=== PATIENT | female | born 1985 | race Two or more races ===

== ENCOUNTER 2017-04-04 07:48 | Inpatient (IN) | payer MEDICAID ==
[~2017-04-04] VITALS: Ht 162.6 cm; Wt 85.0 kg
[~2017-04-04 07:48] MED LIST: DESO1TAB14 PO; FLUO40CA9 PO
[2017-04-04 08:12] VITALS: BP 117/74
[2017-04-04] MEDS ORDERED: OXYTOCIN 30U/ 0.9% NaCL 500ML 500 ML IV ONE (08:39)
[2017-04-04] MEDS ORDERED: D5%-LACTATED RINGERS 1,000 ML IV SCH (08:39)
[2017-04-04] MEDS ORDERED: FENTANYL PF 100 MCG/2ML IVPush PRN (09:00)
[2017-04-04] MEDS ORDERED: METOCLOPRAMIDE 5 MG/ML, 2ML IVPush PRN (09:00)
[2017-04-04] MEDS ORDERED: ONDANSETRON 2MG/ML, 2ML IVPush PRN ×2 (09:00→14:30)
[2017-04-04] MEDS: LACTATED RINGERS 1,000 ML IV SCH ×3 (09:00→13:52)
[2017-04-04] MEDS ORDERED: FENTANYL PF 100 MCG/2ML IV PRN (09:00)
[2017-04-04] MEDS ORDERED: SODIUM CITRATE/CITRIC ACID 30 ML UDC PO PRN (09:00)
[2017-04-04] MEDS ORDERED: OXYTOCIN 30U/ 0.9% NaCL 500ML 500 ML ONE (09:15)
[2017-04-04] MEDS ORDERED: LIDOCAINE 1%, 20ML ONE (09:15)
[2017-04-04] MEDS ORDERED: NEWBORN KIT ONE (09:15)
[2017-04-04] MEDS ORDERED: MISOPROSTOL 200 MCG TABLET ONE (09:15)
[2017-04-04 10:11] LABS: HEMATOCRIT 36.8 % (34.6-47.8); HEMOGLOBIN 12.1 g/dL (11.7-16.4); WHITE BLOOD COUNT 8.7 x10^3/uL (3.4-10)
[2017-04-04] MEDS ORDERED: FENTANYL PF 100 MCG/2ML ONE ×4 (10:20→13:17)
[2017-04-04 10:28] LABS: DAU SCREEN DISCLAIMER
[2017-04-04] MEDS ORDERED: LIDOCAINE/PF 1.5%-EPI 1:200K, 30ML ONE (12:56)
[2017-04-04] MEDS ORDERED: BUPIVACAINE 0.25% ONE ×2 (12:56→13:17)
[2017-04-04] MEDS ORDERED: FENTANYL/BUPIV./NS/PF 250 ML EPIDCONT ONE ×2 (12:56→13:17)
[2017-04-04] MEDS ORDERED: DIPH,PERTUSS(ACELL),TET VAC/PF NC IM-VACC ONE ×2 (13:30→13:31)
[2017-04-04] MEDS ORDERED: FENTANYL/BUPIV./NS/PF 250 ML EPIDCONT SCH (14:02)
[2017-04-04] MEDS ORDERED: LACTATED RINGERS 1,000 ML IV SCH (14:02)
[2017-04-04] MEDS ORDERED: LACTATED RINGERS 1,000 ML IVBOLUS PRN (14:30)
[2017-04-04] MEDS ORDERED: EPHEDRINE 50 MG/ML, 1ML IVPush PRN (14:30)
[2017-04-04] MEDS ORDERED: DIPH,PERTUSS(ACELL),TET VAC/PF NC IM-VACC PRN (17:00)
[2017-04-04] MEDS ORDERED: MISOPROSTOL 200 MCG TABLET PR PRN (17:00)
[2017-04-04] MEDS ORDERED: DOCUSATE 100 MG CAPSULE PO PRN (17:00)
[2017-04-04] MEDS ORDERED: CALCIUM CARBONATE 500 MG TAB.CHEW PO PRN (17:00)
[2017-04-04] MEDS ORDERED: HYDROcodone/APAP 5/325 TABLET PO PRN (17:00)
[2017-04-04] MEDS ORDERED: ONDANSETRON 2MG/ML, 2ML IV PRN (17:00)
[2017-04-04 21:25] VITALS: BP 117/70
[2017-04-04] MEDS: OXYTOCIN 30U/ 0.9% NaCL 500ML 500 ML IV SCH (21:25)
[2017-04-05] MEDS: NITROFURANTOIN (MACROBID) 100 MG CAPSULE PO SCH ×2 (00:11→07:50)
[2017-04-05 00:25] VITALS: BP 115/75
[2017-04-05] MEDS: IBUPROFEN 600 MG TABLET PO PRN ×2 (00:31→06:57)
[2017-04-05] MEDS: OXYTOCIN 30U/ 0.9% NaCL 500ML 500 ML IV SCH (03:00)
[2017-04-05 05:25] VITALS: BP 117/79
[2017-04-05 05:49] LABS: HEMATOCRIT 28.3 % (34.6-47.8); HEMOGLOBIN 9.6 g/dL (11.7-16.4); WHITE BLOOD COUNT 9.5 x10^3/uL (3.4-10)
[2017-04-05 07:45] VITALS: BP 111/77
[2017-04-05] MEDS ORDERED: PRENATAL VIT/IRON/FA 1 EACH TABLET ONE (07:48)
[2017-04-05] MEDS: HYDROcodone/APAP 5/325 TABLET PO PRN ×2 (07:50→11:35)
[2017-04-05] MEDS ORDERED: PRENATAL VIT/IRON/FA 1 EACH TABLET PO SCH (09:00)
[2017-04-05] MEDS ORDERED: IBUP800T PO (11:44)
[2017-04-05] MEDS ORDERED: HYDR-3240 PO (11:45)
[2017-04-05] MEDS ORDERED: NITR100C56 PO (11:45)
[2017-04-05 12:20] VITALS: BP 126/84
[2017-04-05 16:30] VITALS: BP 124/81
== END 2017-04-05 18:21 | disposition home or self-care (01) | DRG 774 ==
LOC: LDOP 07:48 → LDIP 08:48 → 2NW 21:00
PROVIDERS: ADMIT Obstetrics & Gynecology; ATTEND Obstetrics & Gynecology
PROC: 10E0XZZ Delivery of Products of Conception, External Approach (ICD-10-PCS; principal; 2017-04-04)
PROC: 10907ZC Drainage of Amniotic Fluid, Therapeutic from Products of Conception, Via Natural or Artificial Opening (ICD-10-PCS; 2017-04-04)
DX: O69.81X0 Labor and delivery complicated by cord around neck, without compression, not applicable or unspecified (principal); O75.3 Other infection during labor; Z37.0 Single live birth; Z3A.37 37 weeks gestation of pregnancy; O70.9 Perineal laceration during delivery, unspecified
CPT/HCPCS: 36415; 80307; 81001; 85025; 86850; 86900; 87077; 87086; 87186; 90715; J3010; J3490; J2590; J7120

== ENCOUNTER 2017-10-24 18:53 | Emergency (ER) | payer MEDICAID ==
[~2017-10-24] VITALS: Ht 162.6 cm; Wt 60.0 kg
[~2017-10-24 18:53] MED LIST changes: +HYDR-3240 PO; +IBUP-1223 PO; +NITR100C56 PO
[2017-10-24] MEDS ORDERED: SUMATRIPTAN 6MG/0.5ML SQ ONE (19:30)
[2017-10-24] MEDS ORDERED: METOCLOPRAMIDE 5 MG/ML, 2ML IVPush ONE (19:30)
[2017-10-24] MEDS ORDERED: DIPHENHYDRAMINE 50 MG/ML, 1ML IVPush ONE (19:30)
[2017-10-24] MEDS ORDERED: KETOROLAC 30 MG/1 ML IVPush ONE ×2 (19:30→23:00)
[2017-10-24] MEDS ORDERED: SODIUM CHLORIDE 0.9% 1,000ML IVBOLUS ONE (19:30)
[2017-10-24] MEDS ORDERED: SODIUM CHLORIDE FLUSH 10ML SYR IVF ONE (19:30)
[2017-10-24 19:40] LABS: BASOPHILS # (AUTO) 0.04 x10^3/uL (0-0.1); BASOPHILS % (AUTO) 1 % (0-1); EOSINOPHILS # (AUTO) 0.06 x10^3/uL (0-0.4); EOSINOPHILS % (AUTO) 1 % (1-7); LYMPHOCYTES # (AUTO) 1.59 x10^3/uL (1-3.4); LYMPHOCYTES % (AUTO) 31 % (22-44); MD NO; MEAN CORPUSCULAR HEMOGLOBIN 27.2 pg (27.0-34.8); MEAN CORPUSCULAR HGB CONC 32.9 g/dL (32.4-35.8); MEAN CORPUSCULAR VOLUME 82.6 fL (80-100); MEAN PLATELET VOLUME 10.5 fL (7.4-10.4); MONOCYTES # (AUTO) 0.31 x10^3/uL (0.2-0.8); MONOCYTES % (AUTO) 6 % (2-9); NEUTROPHILS # (AUTO) 3.13 x10^3/uL (1.8-6.8); NEUTROPHILS % (AUTO) 61 % (42-75); PLATELET COUNT 299 x10^3/uL (130-400); RED BLOOD COUNT 4.43 x10^6/uL (3.82-5.3); RED CELL DISTRIBUTION WIDTH 13.1 % (9.6-15.2)
[2017-10-24 19:53] LABS: ANION GAP 7 mmol/L (5-15); CALCIUM 9.1 mg/dL (8.5-10.1); CHLORIDE 107 mmol/L (98-107); CREATININE 0.79 mg/dL (0.55-1.02)
[2017-10-24] MEDS ORDERED: METOCLOPRAMIDE 5 MG/ML, 2ML ONE (23:04)
[2017-10-24] MEDS ORDERED: KETOROLAC 30 MG/1 ML ONE (23:04)
[2017-10-25 00:47] LABS: CULTURE INDICATED? YES; MICROSCOPIC INDICATED
[2017-10-25] MEDS ORDERED: NITROFURANTOIN (MACROBID) 100 MG CAPSULE ONE (01:27)
[2017-10-25] MEDS ORDERED: NITROFURANTOIN (MACROBID) 100 MG CAPSULE PO ONE (01:30)
[2017-10-25 01:35] VITALS: BP 100/47
== END 2017-10-25 01:39 | disposition home or self-care (01) ==
LOC: ED 23:51
DX: R51 Headache (principal); N30.00 Acute cystitis without hematuria
CPT/HCPCS: 36415; 70450; 76801; 80048; 81001; 82040; 84702; 85025; 87077; 87086; 87186; 96361; 96374; 96375; 99285; J1885; J2765; J7030

== ENCOUNTER 2018-05-05 14:25 | Inpatient (IN) | payer MEDICAID ==
[~2018-05-05] VITALS: Ht 162.6 cm; Wt 65.9 kg
[2018-05-05] MEDS ORDERED: morphine SULFATE/PF 0.5 MG/ML, 10ML ONE (14:44)
[2018-05-05] MEDS ORDERED: METOCLOPRAMIDE 5 MG/ML, 2ML ONE (14:52)
[2018-05-05] MEDS ORDERED: METOCLOPRAMIDE 10MG TABLET ONE (14:52)
[2018-05-05] MEDS ORDERED: SODIUM CITRATE/CITRIC ACID 30 ML UDC ONE (14:52)
[2018-05-05] MEDS ORDERED: OXYTOCIN 30U/ 0.9% NaCL 500ML 500 ML IV SCH (14:59)
[2018-05-05] MEDS ORDERED: LACTATED RINGERS 1,000 ML IV SCH ×2 (14:59→15:00)
[2018-05-05] MEDS ORDERED: METOCLOPRAMIDE 5 MG/ML, 2ML IV ONE (15:00)
[2018-05-05] MEDS ORDERED: SODIUM CITRATE/CITRIC ACID 30 ML UDC PO ONE (15:00)
[2018-05-05] MEDS ORDERED: LACTATED RINGERS 1,000 ML IVBOLUS ONE (15:00)
[2018-05-05] MEDS ORDERED: CEFAZOLIN 1,000 MG ONE (15:21)
[2018-05-05] MEDS ORDERED: WATER-INJECTION,STERILE 10 ML IV ONE (15:21)
[2018-05-05] MEDS ORDERED: PHENYLEPHRINE 10 MG/ML ONE (15:21)
[2018-05-05] MEDS ORDERED: EPHEDRINE 50 MG/ML, 1ML ONE (15:21)
[2018-05-05] MEDS ORDERED: ONDANSETRON 2MG/ML, 2ML ONE (15:21)
[2018-05-05] MEDS ORDERED: OXYTOCIN 10 UNITS/ML, 1ML ONE (15:21)
[2018-05-05 15:32] LABS: AMPHETAMINE SCREEN, URINE Positive (Negative); BARBITURATE SCREEN, URINE Negative (Negative); BENZODIAZEPINE SCREEN, URINE Negative (Negative); CANNABINOID SCREEN, URINE Negative (Negative); COCAINE SCREEN, URINE Negative (Negative); METHADONE SCREEN, URINE Negative (Negative); OPIATE SCREEN, URINE Negative (Negative)
[2018-05-05 15:35] LABS: MICROSCOPIC INDICATED
[2018-05-05 15:44] LABS: MEAN CORPUSCULAR HEMOGLOBIN 23.5 pg (27.0-34.8); MEAN CORPUSCULAR VOLUME 73.3 fL (80-100); RED BLOOD COUNT 4.06 x10^6/uL (3.82-5.3); RED CELL DISTRIBUTION WIDTH 16.1 % (9.6-15.2)
[2018-05-05 15:46] LABS: MEAN PLATELET VOLUME 13.5 fL (7.4-10.4); PLATELET COUNT 233 x10^3/uL (130-400)
[2018-05-05 15:47] LABS: MD YES
[2018-05-05] MEDS: OXYTOCIN 30U/ 0.9% NaCL 500ML 500 ML IV SCH (15:53)
[2018-05-05] MEDS: LACTATED RINGERS 1,000 ML IV SCH ×2 (15:53→16:56)
[2018-05-05 15:55] LABS: ANISOCYTOSIS 1+; BAND#(MANUAL) 0.08 x10^3/uL; BANDS%(MANUAL) 1 % (0-7); BASOS#(MANUAL) 0.08 x10^3/uL (0-0.1); BASOS% (MANUAL) 1 % (0-1); LYMPH#(MANUAL) 1.56 x10^3/uL (1-3.4); LYMPHS% (MANUAL) 19 % (22-44); MICROCYTOSIS 1+; MONOS#(MANUAL) 0.49 x10^3/uL (0.3-2.7); MONOS% (MANUAL) 6 % (2-9); SEG#(MANUAL) 5.99 x10^3/uL (1.8-6.8); SEGS% (MANUAL) 73 % (42-75)
[2018-05-05 15:57] LABS: <PLATELET ESTIMATE> ADEQUATE; HYPOCHROMIA 1+; LARGE PLATELETS 1+; POLYCHROMASIA 1+
[2018-05-05] MEDS ORDERED: OXYcodone/APAP 5/325MG TABLET PO PRN ×2 (16:00)
[2018-05-05] MEDS ORDERED: ONDANSETRON 2MG/ML, 2ML IV PRN (16:00)
[2018-05-05] MEDS ORDERED: DIPHENHYDRAMINE 50 MG CAPSULE PO PRN (16:00)
[2018-05-05] MEDS ORDERED: OXYTOCIN 30U/ 0.9% NaCL 500ML 500 ML ONE (16:38)
[2018-05-05] MEDS ORDERED: OXYcodone/APAP 5/325MG TABLET ONE (17:10)
[2018-05-05] MEDS ORDERED: KETOROLAC 30 MG/1 ML ONE (17:10)
[2018-05-05] MEDS: KETOROLAC 30 MG/1 ML IV PRN (17:13)
[2018-05-05 18:10] VITALS: BP 128/82
[2018-05-05 18:40] VITALS: BP 129/77
[2018-05-05 19:10] VITALS: BP 129/77
[2018-05-05] MEDS: MEPERIDINE/PF 50 MG/ML IM PRN (20:42)
[2018-05-06] VITALS: BP 122/76
[2018-05-06] MEDS: KETOROLAC 30 MG/1 ML IV PRN ×3 (00:14→12:13)
[2018-05-06] MEDS: LACTATED RINGERS 1,000 ML IV SCH ×5 (01:53→15:53)
[2018-05-06] MEDS: OXYTOCIN 30U/ 0.9% NaCL 500ML 500 ML IV SCH ×2 (01:53→11:53)
[2018-05-06] MEDS: MEPERIDINE/PF 50 MG/ML IM PRN (02:43)
[2018-05-06 05:30] VITALS: BP 116/72
[2018-05-06 06:34] LABS: MEAN CORPUSCULAR HEMOGLOBIN 23.3 pg (27.0-34.8); MEAN CORPUSCULAR HGB CONC 31.7 g/dL (32.4-35.8); MEAN CORPUSCULAR VOLUME 73.3 fL (80-100); MEAN PLATELET VOLUME 13.3 fL (7.4-10.4); PLATELET COUNT 142 x10^3/uL (130-400); RED CELL DISTRIBUTION WIDTH 16.5 % (9.6-15.2)
[2018-05-06 06:35] LABS: BASOPHILS # (AUTO) 0.04 x10^3/uL (0-0.1); BASOPHILS % (AUTO) 0 % (0-1); EOSINOPHILS # (AUTO) 0.01 x10^3/uL (0-0.4); EOSINOPHILS % (AUTO) 0 % (1-7); LYMPHOCYTES % (AUTO) 18 % (22-44); MD SCAN; MONOCYTES # (AUTO) 0.43 x10^3/uL (0.2-0.8); MONOCYTES % (AUTO) 5 % (2-9); NEUTROPHILS # (AUTO) 6.84 x10^3/uL (1.8-6.8); NEUTROPHILS % (AUTO) 77 % (42-75)
[2018-05-06 08:10] VITALS: BP 120/74
[2018-05-06] MEDS: PRENATAL VIT/IRON/FA 1 EACH TABLET PO SCH (09:00)
[2018-05-06 09:21] LABS: MEAN CORPUSCULAR HEMOGLOBIN 23.6 pg (27.0-34.8); MEAN CORPUSCULAR HGB CONC 32.3 g/dL (32.4-35.8); MEAN CORPUSCULAR VOLUME 73.1 fL (80-100); MEAN PLATELET VOLUME 10.5 fL (7.4-10.4); PLATELET COUNT 123 x10^3/uL (130-400); RED BLOOD COUNT 2.74 x10^6/uL (3.82-5.3); RED CELL DISTRIBUTION WIDTH 16.8 % (9.6-15.2)
[2018-05-06] MEDS: OXYcodone 5 MG/5 ML ORAL.SOL UDC PO PRN ×2 (09:30→17:53)
[2018-05-06] MEDS: DOCUSATE 100 MG CAPSULE PO PRN ×2 (09:30→17:58)
[2018-05-06 09:51] LABS: BASOPHILS # (AUTO) 0.02 x10^3/uL (0-0.1); BASOPHILS % (AUTO) 0 % (0-1); EOSINOPHILS # (AUTO) 0.18 x10^3/uL (0-0.4); EOSINOPHILS % (AUTO) 2 % (1-7); LYMPHOCYTES # (AUTO) 0.97 x10^3/uL (1-3.4); LYMPHOCYTES % (AUTO) 11 % (22-44); MD SCAN; MONOCYTES # (AUTO) 0.37 x10^3/uL (0.2-0.8); MONOCYTES % (AUTO) 4 % (2-9); NEUTROPHILS # (AUTO) 7.28 x10^3/uL (1.8-6.8); NEUTROPHILS % (AUTO) 83 % (42-75)
[2018-05-06] MEDS ORDERED: FERROUS SULFATE 325 MG TABLET PO SCH (12:00)
[2018-05-06] MEDS: FERROUS SULFATE 325 MG TABLET PO SCH ×2 (12:13→17:53)
[2018-05-06 13:02] VITALS: BP 124/80
[2018-05-06] MEDS: IBUPROFEN 800 MG TABLET PO PRN (17:53)
[2018-05-06 19:20] VITALS: BP 133/81
[2018-05-07] MEDS: IBUPROFEN 800 MG TABLET PO PRN ×3 (02:08→20:10)
[2018-05-07 06:01] LABS: MEAN CORPUSCULAR HEMOGLOBIN 23.6 pg (27.0-34.8); MEAN CORPUSCULAR HGB CONC 32.3 g/dL (32.4-35.8); MEAN CORPUSCULAR VOLUME 73.1 fL (80-100); RED BLOOD COUNT 2.67 x10^6/uL (3.82-5.3); RED CELL DISTRIBUTION WIDTH 16.2 % (9.6-15.2)
[2018-05-07 06:32] LABS: BASOPHILS # (AUTO) 0.01 x10^3/uL (0-0.1); BASOPHILS % (AUTO) 0 % (0-1); EOSINOPHILS # (AUTO) 0.05 x10^3/uL (0-0.4); EOSINOPHILS % (AUTO) 1 % (1-7); LYMPHOCYTES # (AUTO) 1.53 x10^3/uL (1-3.4); LYMPHOCYTES % (AUTO) 22 % (22-44); MD SCAN; MEAN PLATELET VOLUME 10.6 fL (7.4-10.4); MONOCYTES # (AUTO) 0.37 x10^3/uL (0.2-0.8); MONOCYTES % (AUTO) 5 % (2-9); NEUTROPHILS # (AUTO) 5.18 x10^3/uL (1.8-6.8); NEUTROPHILS % (AUTO) 73 % (42-75); PLATELET COUNT 135 x10^3/uL (130-400)
[2018-05-07] MEDS: FERROUS SULFATE 325 MG TABLET PO SCH ×3 (08:22→17:57)
[2018-05-07] MEDS: DOCUSATE 100 MG CAPSULE PO PRN ×2 (08:22→20:10)
[2018-05-07] MEDS: PRENATAL VIT/IRON/FA 1 EACH TABLET PO SCH (08:22)
[2018-05-07 08:30] VITALS: BP 118/80
[2018-05-07 09:20] LABS: AMPHETAMINE SCREEN, URINE Negative (Negative); BARBITURATE SCREEN, URINE Negative (Negative); BENZODIAZEPINE SCREEN, URINE Negative (Negative); CANNABINOID SCREEN, URINE Negative (Negative); COCAINE SCREEN, URINE Negative (Negative); METHADONE SCREEN, URINE Negative (Negative); OPIATE SCREEN, URINE Negative (Negative)
[2018-05-07 20:00] VITALS: BP 134/79
[2018-05-08] MEDS: DOCUSATE 100 MG CAPSULE PO PRN ×2 (08:48→22:08)
[2018-05-08] MEDS: FERROUS SULFATE 325 MG TABLET PO SCH ×3 (08:48→17:16)
[2018-05-08] MEDS: PRENATAL VIT/IRON/FA 1 EACH TABLET PO SCH (08:48)
[2018-05-08] MEDS: IBUPROFEN 800 MG TABLET PO PRN ×2 (08:48→22:08)
[2018-05-08 08:50] VITALS: BP 129/77
[2018-05-08] MEDS: OXYcodone 5 MG/5 ML ORAL.SOL UDC PO PRN ×2 (08:57→22:08)
[2018-05-08 20:15] VITALS: BP 132/81
[2018-05-09 07:00] VITALS: BP 132/68
[2018-05-09] MEDS: FERROUS SULFATE 325 MG TABLET PO SCH ×3 (07:53→17:34)
[2018-05-09] MEDS: DOCUSATE 100 MG CAPSULE PO PRN (07:53)
[2018-05-09] MEDS: PRENATAL VIT/IRON/FA 1 EACH TABLET PO SCH (07:54)
[2018-05-09] MEDS: OXYcodone 5 MG/5 ML ORAL.SOL UDC PO PRN ×2 (11:43→17:34)
[2018-05-09] MEDS: IBUPROFEN 800 MG TABLET PO PRN (11:43)
[2018-05-09] MEDS ORDERED: OXYC-302 PO (14:31)
[2018-05-09] MEDS ORDERED: DOCU-131 PO (14:31)
[2018-05-09] MEDS ORDERED: FERR325T23 PO (14:32)
[2018-05-09] MEDS ORDERED: MEASLES,MUMPS&RUBELLA VACC/PF 0.5 ML SQ-VACC ONE ×2 (16:44→18:00)
[2018-05-09 20:00] VITALS: BP 123/74
== END 2018-05-09 23:49 | disposition home or self-care (01) | DRG 765 ==
LOC: LDOP 14:25 → LDIP 14:59 → 2NW 17:56
PROVIDERS: ADMIT Obstetrics & Gynecology; ATTEND Obstetrics & Gynecology
PROC: 10D00Z1 Extraction of Products of Conception, Low, Open Approach (ICD-10-PCS; principal; 2018-05-05)
PROC: 3E0134Z Introduction of Serum, Toxoid and Vaccine into Subcutaneous Tissue, Percutaneous Approach (ICD-10-PCS; 2018-05-09)
DX: O45.93 Premature separation of placenta, unspecified, third trimester (principal); O60.14X0 Preterm labor third trimester with preterm delivery third trimester, not applicable or unspecified; O99.324 Drug use complicating childbirth; Z37.2 Twins, both liveborn; Z3A.29 29 weeks gestation of pregnancy; O30.043 Twin pregnancy, dichorionic/diamniotic, third trimester; Z90.721 Acquired absence of ovaries, unilateral; O99.334 Smoking (tobacco) complicating childbirth; F17.200 Nicotine dependence, unspecified, uncomplicated; O32.8XX0 Maternal care for other malpresentation of fetus, not applicable or unspecified; O99.314 Alcohol use complicating childbirth; F15.90 Other stimulant use, unspecified, uncomplicated; O99.02 Anemia complicating childbirth; D64.9 Anemia, unspecified; Z72.89 Other problems related to lifestyle; Z23 Encounter for immunization
CPT/HCPCS: 36415; 80307; 81001; 82803; 85025; 86592; 86762; 86850; 86900; 87340; 87806; 88305; G0378; J0690; J1885; J2175; J2274; J2405; G0475; J2370; J2590; J2765; J7120

== ENCOUNTER 2019-03-10 19:12 | Emergency (ER) | payer MEDICAID ==
[~2019-03-10] VITALS: Ht 162.6 cm; Wt 55.3 kg
[2019-03-10 19:16] VITALS: BP 104/67
== END 2019-03-10 21:51 | disposition home or self-care (01) ==
LOC: ED 21:45
DX: S51.811A Laceration without foreign body of right forearm, initial encounter (principal); S61.511A Laceration without foreign body of right wrist, initial encounter; F32.9 Major depressive disorder, single episode, unspecified; F17.200 Nicotine dependence, unspecified, uncomplicated; W19.XXXA Unspecified fall, initial encounter; Y93.89 Activity, other specified; Y92.009 Unspecified place in unspecified non-institutional (private) residence as the place of occurrence of the external cause; Y99.8 Other external cause status
CPT/HCPCS: 12001; 12032; 73090; 90471; 90715; 99285; Q0162